=== PATIENT | male | born 1950 | race Hispanic/Latino ===

== ENCOUNTER → 2024-07-27 | Outpatient (CLI) | payer OTHER ==
[~2024-07-27] MED LIST: GADOTERATE MEGLUMINE 10 MMOL/20 ML VIAL IV ONE
--- NOTE | 2024-07-27 10:03 | HMCIMG ---
MRCP([facility])CHOLANGIOPANCREATO REASON: ABNORMAL LFT's COMPARISON: None TECHNIQUE: Routine imaging protocol was performed in the coronal and axial plane with T1, proton density, T2 and gradient recalled sequences. Images are also obtained pre and post gadolinium contrast infusion, 17 cc Clariscan IV. FINDINGS: There are no focal liver lesions. Gallbladder is absent. Common duct is dilated at 6 to 7 mm. There is a 5 mm filling defect distally in the common duct consistent with a common duct stone. Intrahepatic to biliary tree appears nondistended. Spleen and kidneys appear normal. The pancreas is unremarkable, there is no evidence of mass or pancreatitis. There is normal contrast enhancement. There are no focal masses. There is no free fluid and there are no varices. IMPRESSION: 1. Absent gallbladder. 2. Mildly dilated common duct, there is a stone in the distal common duct seen on MRCP sequences 3. Otherwise unremarkable pre and postcontrast MR of the abdomen.
== END | disposition home or self-care (01) ==
LOC: RAH 07:49
PROVIDERS: ATTEND Internal Medicine Gastroenterology
DX: K80.50 Calculus of bile duct without cholangitis or cholecystitis without obstruction (principal); K83.8 Other specified diseases of biliary tract; R94.5 Abnormal results of liver function studies; R17 Unspecified jaundice; Z90.49 Acquired absence of other specified parts of digestive tract
CPT/HCPCS: 74183; A9575